=== PATIENT | male | born 1940 | race Caucasian/White ===

== ENCOUNTER 2018-11-27 09:56 | Emergency (ER) | payer OTHER ==
[~2018-11-27] VITALS: Ht 172.7 cm; Wt 77.1 kg
[~2018-11-27 09:56] MED LIST: METO25ER PO; NIFE60ER PO; OXYC5 PO
[2018-11-27 10:35] LABS: BASOPHILS PERCENT AUTO 1 % (0-2); EOSINOPHILS ABSOLUTE AUTO 0.03 K/mm3 (0.00-0.68); EOSINOPHILS PERCENT AUTO 0 % (0-6); Hematocrit 37.1 % (37.0-53.0); Hemoglobin 11.6 g/dL (13.5-17.5); IMMATURE GRAN ABSOLUTE AUTO 0.12 K/mm3 (0.00-0.10); IMMATURE GRAN PERCENT AUTO 1 % (0-1); LYMPHOCYTES ABSOLUTE AUTO 1.39 K/mm3 (0.84-5.20); LYMPHOCYTES PERCENT AUTO 11 % (21-46); MONOCYTES ABSOLUTE AUTO 1.71 K/mm3 (0.16-1.47); MONOCYTES PERCENT AUTO 13 % (4-13); Mean Corpuscular HGB 30.8 pg (26.0-34.0); Mean Corpuscular HGB Conc 31.3 g/dL (31.5-36.5); Mean Corpuscular Volume 98 fL (80-100); Mean Platelet Volume 9.9 fL (9.1-12.4); NEUTROPHILS PERCENT AUTO 74 % (41-73); Platelet Count 232 K/mm3 (150-400); RDW Standard Deviation 54.4 fL (35.1-46.3); Red Blood Cell Count 3.77 M/mm3 (4.30-5.90); White Blood Cell Count 12.75 K/mm3 (4.00-11.30)
[2018-11-27 10:40] LABS: Calcium, Ionized (POC) 1.02 mmol/L (1.10-1.46); Chloride (POC) 92 mmol/L (98-108); Creatinine (POC) 1.4 mg/dL (0.8-1.3); Glucose (ISTAT POC) 125 mg/dL (70-99); Hemoglobin (POC) 12.6 g/dL (13.5-17.5); Sodium (POC) 132 mmol/L (135-148); Total CO2 (POC) 30 mmol/L (21-32)
[2018-11-27 10:57] LABS: Albumin, Blood 2.5 g/dL (3.4-5.0); Albumin/Globulin Ratio 0.5 (0.8-1.8); Bilirubin, Total 0.4 mg/dL (0.1-1.0); Bun/Creatinine Ratio 18.7 (12.0-20.0); Calcium, Blood 8.5 mg/dL (8.5-10.1); Creatinine, Blood 1.34 mg/dL (0.60-1.20); Globulin, Blood 4.6 g/dL (2.2-4.0); Potassium, Blood 3.9 mmol/L (3.5-5.5); Total Protein, Blood 7.1 g/dL (6.4-8.2)
[2018-11-27] MEDS ORDERED: TAMS.4ER PO (11:27)
[2018-11-27] MEDS ORDERED: GABA100 PO (11:27)
== END 2018-11-27 15:12 | disposition short-term general hospital (02) ==
LOC: ER 09:56 → MRI 10:00 → EDSTATUS 10:00 → ER 15:12 → MRI 11-30 09:00
PROVIDERS: Emergency Medicine
DX: A41.9 Sepsis, unspecified organism (principal); J18.9 Pneumonia, unspecified organism; J96.01 Acute respiratory failure with hypoxia; J90 Pleural effusion, not elsewhere classified; C34.90 Malignant neoplasm of unspecified part of unspecified bronchus or lung; Z79.899 Other long term (current) drug therapy
CPT/HCPCS: 36415; 71045; 71260; 80047; 80053; 83605; 85014; 85025; 93005; 93010; 96361-59; 96365-59; 96367-59; 99285-25; J0456; J0696; J7030; J7050; Q9967

== ENCOUNTER 2019-01-25 11:40 | Day surgery (SDC) | payer OTHER ==
[~2019-01-25] VITALS: Ht 172.7 cm; Wt 65.2 kg
[~2019-01-25 11:40] MED LIST changes: +ACET325 PO; +BENZ100A PO; +GABA100 PO; +LISI20 PO; +METO10 PO; +NIFE30ER PO; +Reglan10 MG PO; +Senna Laxative8.6 MG PO; +Senna Plus Tab1 EACH PO; +TAMS.4ER PO; +Zofran8 MG PO
--- NOTE | 2019-01-25 12:19 | NUR ---
01/25/19 1219 Jigna Jacobson CALL LIGHT WITHIN REACH
--- NOTE | 2019-01-25 14:02 | NUR ---
01/25/19 1402 Lois Rodriguez PORTABLE CXR IN PROGRESS,FAMILY CALLED AND WILL BE HERE SOON
== END 2019-01-25 15:11 | disposition home or self-care (01) ==
LOC: ORSCSDS 11:40
PROVIDERS: Surgery
PROC: B5131ZA Fluoroscopy of Right Jugular Veins using Low Osmolar Contrast, Guidance (ICD-10-PCS; principal; 2019-01-25 13:00)
PROC: 05HM33Z Insertion of Infusion Device into Right Internal Jugular Vein, Percutaneous Approach (ICD-10-PCS; principal; 2019-01-25 13:00)
DX: C34.32 Malignant neoplasm of lower lobe, left bronchus or lung (principal); I10 Essential (primary) hypertension; Z79.899 Other long term (current) drug therapy
CPT/HCPCS: 77001; C1788; J0690; J1642; J2001; J2250; J2704; J3010; J7120

== ENCOUNTER 2019-08-22 13:33 | Inpatient (IN) | payer OTHER ==
[~2019-08-22] VITALS: Ht 170.2 cm; Wt 64.4 kg
[2019-08-22 14:25] LABS: BASOPHILS ABSOLUTE AUTO 0.05 K/mm3 (0.00-0.23); BASOPHILS PERCENT AUTO 0 % (0-2); EOSINOPHILS PERCENT AUTO 0 % (0-6); Hematocrit 40.6 % (37.0-53.0); Hemoglobin 13.6 g/dL (13.5-17.5); IMMATURE GRAN ABSOLUTE AUTO 0.12 K/mm3 (0.00-0.10); IMMATURE GRAN PERCENT AUTO 1 % (0-1); LYMPHOCYTES ABSOLUTE AUTO 0.99 K/mm3 (0.84-5.20); LYMPHOCYTES PERCENT AUTO 7 % (21-46); MONOCYTES ABSOLUTE AUTO 1.11 K/mm3 (0.16-1.47); MONOCYTES PERCENT AUTO 8 % (4-13); Mean Corpuscular HGB 33.1 pg (26.0-34.0); Mean Corpuscular HGB Conc 33.5 g/dL (31.5-36.5); Mean Corpuscular Volume 99 fL (80-100); Mean Platelet Volume 10.5 fL (9.1-12.4); NEUTROPHILS ABSOLUTE AUTO 11.09 K/mm3 (1.96-9.15); NEUTROPHILS PERCENT AUTO 83 % (41-73); Platelet Count 148 K/mm3 (150-400); RDW Standard Deviation 55.2 fL (35.1-46.3); Red Blood Cell Count 4.11 M/mm3 (4.30-5.90); White Blood Cell Count 13.36 K/mm3 (4.00-11.30)
[2019-08-22 14:33] LABS: Alanine Aminotransfer (ALT/SGP 59 U/L (12-78); Albumin, Blood 2.8 g/dL (3.4-5.0); Albumin/Globulin Ratio 0.6 (0.8-1.8); Alk Phos 507 U/L (50-136); Anion Gap 7 mmol/L (6-16); Aspartate Aminotrans (AST/SGOT 40 U/L (12-37); Bilirubin, Total 0.7 mg/dL (0.1-1.0); Blood Urea Nitrogen 23 mg/dL (8-24); Bun/Creatinine Ratio 14.9 (12.0-20.0); CO2, Blood 32 mmol/L (21-32); Calcium, Blood 8.8 mg/dL (8.5-10.1); Chloride, Blood 98 mmol/L (98-108); Creatinine, Blood 1.54 mg/dL (0.60-1.20); Globulin, Blood 4.5 g/dL (2.2-4.0); Glomerular Filtration Rate 47 (60-); Glucose, Blood 165 mg/dL (70-99); Potassium, Blood 3.2 mmol/L (3.5-5.5); Sodium, Blood 137 mmol/L (136-145); Total Protein, Blood 7.3 g/dL (6.4-8.2); Troponin I <0.015 ng/mL (0.000-0.040)
[2019-08-22] MEDS ORDERED: Percocet 5-3251 EACH PO (17:30)
--- NOTE | 2019-08-22 18:46 | NUR ---
SHIFT SUMMARY PATIENT ARRIVED BY HOSPITAL BED. ORIENTED TO ROOM. ASSESSEMNTS COMPLETED. FAMILY AT BEDSIDE. PATIENT IN NO ACUTE DISTRESS. CT COMPLETED AWAITING RESULTS. SCD'D PLACED ON PATIENT. PATIENT IS A/O AND ABLE TO MAKE NEEDS KNOWN.
[2019-08-23 04:57] LABS: BASOPHILS ABSOLUTE AUTO 0.04 K/mm3 (0.00-0.23); BASOPHILS PERCENT AUTO 1 % (0-2); EOSINOPHILS ABSOLUTE AUTO 0.06 K/mm3 (0.00-0.68); EOSINOPHILS PERCENT AUTO 1 % (0-6); Hematocrit 35.3 % (37.0-53.0); Hemoglobin 11.8 g/dL (13.5-17.5); IMMATURE GRAN ABSOLUTE AUTO 0.04 K/mm3 (0.00-0.10); IMMATURE GRAN PERCENT AUTO 1 % (0-1); LYMPHOCYTES ABSOLUTE AUTO 1.13 K/mm3 (0.84-5.20); LYMPHOCYTES PERCENT AUTO 13 % (21-46); MONOCYTES PERCENT AUTO 12 % (4-13); Mean Corpuscular HGB 32.9 pg (26.0-34.0); Mean Corpuscular HGB Conc 33.4 g/dL (31.5-36.5); Mean Corpuscular Volume 98 fL (80-100); Mean Platelet Volume 10.6 fL (9.1-12.4); NEUTROPHILS ABSOLUTE AUTO 6.33 K/mm3 (1.96-9.15); NEUTROPHILS PERCENT AUTO 74 % (41-73); Platelet Count 105 K/mm3 (150-400); RDW Coefficient Variation 15.1 % (11.7-14.2); RDW Standard Deviation 55.1 fL (35.1-46.3); Red Blood Cell Count 3.59 M/mm3 (4.30-5.90)
[2019-08-23 05:35] LABS: Bun/Creatinine Ratio 14.4 (12.0-20.0); Calcium, Blood 8.6 mg/dL (8.5-10.1); Creatinine, Blood 1.53 mg/dL (0.60-1.20); Potassium, Blood 3.2 mmol/L (3.5-5.5)
--- NOTE | 2019-08-23 07:14 | NUR ---
08/23/19 0600 VITALS STABLE. MEDICATED TWICE FOR "LUNG" AND SHOULDER DISCOMFORT. UP IN ROOM. PT DEPRESSED THIS SHIFT ABOUT POOR PROGNOSIS GIVEN BY MD LAST NIGHT REGARDING CANCER. ENCOURAGED VERBALIZATION OF FEELINGS/FEARS.
--- NOTE | 2019-08-23 14:19 | NUR ---
Patient is lying in bed and alert. Patient tells me about his recent lung cancer diagnosis, about his family and about his thoughts on spirituality. Patient shares about his 8 year old great grandson that he is raising and how devastating his will be on him. Patient also explains his many views about what is messed up in this country and his ideas on how to fix it. Patient is clearly struggling to process his prognosis. I listen empathically, normalize patient's experience, explore sources of meaning, provide spiritual guidance and a calming presence. I will continue to remain available to patient and family.
[2019-08-23] MEDS ORDERED: LEVO750 PO (17:39)
[2019-08-23] MEDS ORDERED: PRED20 PO (17:39)
== END 2019-08-23 19:06 | disposition home or self-care (01) | DRG 193 ==
LOC: ER 13:33 → MEDS 15:34
PROVIDERS: Physician Assistant; ADMIT Internal Medicine
DX: J18.9 Pneumonia, unspecified organism (principal); J96.01 Acute respiratory failure with hypoxia; J98.11 Atelectasis; C34.92 Malignant neoplasm of unspecified part of left bronchus or lung; Z87.891 Personal history of nicotine dependence; E87.6 Hypokalemia; I10 Essential (primary) hypertension; Z90.2 Acquired absence of lung [part of]; Z99.81 Dependence on supplemental oxygen
CPT/HCPCS: 36415; 71046; 71260; 80048; 80053; 84145; 84484; 85025; 93005; 93010; 96374; 99285-25; J0696; Q9967

== ENCOUNTER 2020-12-23 11:31 | Emergency (ER) | payer OTHER ==
[~2020-12-23] VITALS: Ht 170.2 cm; Wt 59.0 kg
[~2020-12-23 11:31] MED LIST changes: +LEVO750 PO; +PRED20 PO; +Percocet 5-3251 EACH PO
[2020-12-23 13:24] LABS: BASOPHILS ABSOLUTE AUTO 0.02 K/mm3 (0.00-0.23); BASOPHILS PERCENT AUTO 0 % (0-2); EOSINOPHILS ABSOLUTE AUTO 0.13 K/mm3 (0.00-0.68); EOSINOPHILS PERCENT AUTO 2 % (0-6); Hematocrit 25.8 % (37.0-53.0); Hemoglobin 8.6 g/dL (13.5-17.5); IMMATURE GRAN ABSOLUTE AUTO 0.03 K/mm3 (0.00-0.10); IMMATURE GRAN PERCENT AUTO 0 % (0-1); LYMPHOCYTES ABSOLUTE AUTO 0.55 K/mm3 (0.84-5.20); LYMPHOCYTES PERCENT AUTO 8 % (21-46); MONOCYTES ABSOLUTE AUTO 0.79 K/mm3 (0.16-1.47); MONOCYTES PERCENT AUTO 11 % (4-13); Mean Corpuscular HGB 35.1 pg (26.0-34.0); Mean Corpuscular HGB Conc 33.3 g/dL (31.5-36.5); Mean Corpuscular Volume 105 fL (80-100); NEUTROPHILS ABSOLUTE AUTO 5.48 K/mm3 (1.96-9.15); NEUTROPHILS PERCENT AUTO 78 % (41-73); Platelet Count 63 K/mm3 (150-400); RDW Coefficient Variation 14.9 % (11.7-14.2); RDW Standard Deviation 58.3 fL (35.1-46.3); Red Blood Cell Count 2.45 M/mm3 (4.30-5.90)
[2020-12-23 13:43] LABS: Albumin, Blood 2.1 g/dL (3.4-5.0); Albumin/Globulin Ratio 0.6 (0.8-1.8); Bilirubin, Total 0.8 mg/dL (0.1-1.0); Bun/Creatinine Ratio 26.7 (12.0-20.0); Calcium, Blood 8.3 mg/dL (8.5-10.1); Creatinine, Blood 1.61 mg/dL (0.60-1.20); Globulin, Blood 3.8 g/dL (2.2-4.0); Potassium, Blood 3.8 mmol/L (3.5-5.5); Total Protein, Blood 5.9 g/dL (6.4-8.2)
[2020-12-23 14:37] LABS: Source, Urine Clean Catch
[2020-12-23 14:47] LABS: Bilirubin, Urine Neg (Neg); Blood, Urine 1+ (Neg); Glucose Qualitative, Urine Neg (Neg); Ketones, Urine Neg (Neg); Leukocyte Esterase, Urine 2+ (Neg); Nitrite, Urine Neg (Neg); Protein, Urine 3+ (Neg); Specific Gravity, Urine 1.015 (1.003-1.022); Urobilinogen, Urine 1+ (Normal)
[2020-12-23 15:16] LABS: Appearance, Urine Hazy (Clear); Color, Urine Yellow (P-Yellow)
[2020-12-23 15:19] LABS: Bacteria Many /hpf; Squamous Epithelial Cells Mod /hpf (Few)
[2020-12-23] MEDS ORDERED: ONDA4ODT SL (16:04)
[2020-12-23] MEDS ORDERED: Percocet 5-3251 EACH PO (16:04)
[2020-12-23] MEDS ORDERED: Prednisone10 MG PO (16:24)
[2020-12-23] MEDS ORDERED: Children's Clari5 MG PO (16:43)
== END 2020-12-23 16:50 | disposition home or self-care (01) ==
LOC: ER 11:31
PROVIDERS: Emergency Medicine
DX: R18.8 Other ascites (principal); C34.90 Malignant neoplasm of unspecified part of unspecified bronchus or lung; Z87.891 Personal history of nicotine dependence
CPT/HCPCS: 74177; 80053; 81001; 82140; 83690; 85025; 87086; 93005; 93010; 96374-59; 99284-25; J2405; J7030; Q9967

== ENCOUNTER 2020-12-27 20:07 | Inpatient (IN) | payer OTHER ==
[~2020-12-27] VITALS: Ht 172.7 cm; Wt 66.3 kg
[~2020-12-27 20:07] MED LIST changes: +Children's Clari5 MG PO; +ONDA4ODT SL; +Prednisone10 MG PO
[2020-12-27 20:47] LABS: BASOPHILS ABSOLUTE AUTO 0.03 K/mm3 (0.00-0.23); BASOPHILS PERCENT AUTO 0 % (0-2); EOSINOPHILS ABSOLUTE AUTO 0.03 K/mm3 (0.00-0.68); EOSINOPHILS PERCENT AUTO 0 % (0-6); Hematocrit 22.2 % (37.0-53.0); Hemoglobin 7.3 g/dL (13.5-17.5); IMMATURE GRAN ABSOLUTE AUTO 0.05 K/mm3 (0.00-0.10); IMMATURE GRAN PERCENT AUTO 1 % (0-1); LYMPHOCYTES ABSOLUTE AUTO 1.61 K/mm3 (0.84-5.20); LYMPHOCYTES PERCENT AUTO 18 % (21-46); MONOCYTES ABSOLUTE AUTO 0.91 K/mm3 (0.16-1.47); MONOCYTES PERCENT AUTO 10 % (4-13); Mean Corpuscular HGB 35.3 pg (26.0-34.0); Mean Corpuscular HGB Conc 32.9 g/dL (31.5-36.5); Mean Corpuscular Volume 107 fL (80-100); Mean Platelet Volume 11.5 fL (9.1-12.4); NEUTROPHILS ABSOLUTE AUTO 6.35 K/mm3 (1.96-9.15); NEUTROPHILS PERCENT AUTO 71 % (41-73); Platelet Count 107 K/mm3 (150-400); RDW Standard Deviation 59.3 fL (35.1-46.3); Red Blood Cell Count 2.07 M/mm3 (4.30-5.90); White Blood Cell Count 8.98 K/mm3 (4.00-11.30)
[2020-12-27 21:19] LABS: Albumin/Globulin Ratio 0.6 (0.8-1.8); Bilirubin, Total 1.1 mg/dL (0.1-1.0); Bun/Creatinine Ratio 42.2 (12.0-20.0); Calcium, Blood 7.9 mg/dL (8.5-10.1); Creatinine, Blood 1.66 mg/dL (0.60-1.20); Globulin, Blood 3.6 g/dL (2.2-4.0); Potassium, Blood 4.2 mmol/L (3.5-5.5); Total Protein, Blood 5.6 g/dL (6.4-8.2)
[2020-12-27 21:24] LABS: Troponin I 0.553 ng/mL (0.000-0.040)
[2020-12-27] MEDS ORDERED: OXYC5 PO (22:27)
[2020-12-27 22:53] LABS: International Normalized Ratio 1.16; Prothrombin Time Results 12.3 Sec (9.7-11.5)
--- NOTE | 2020-12-28 05:58 | NUR ---
GRIPPER ATTACHER SUMMARY PT A/O X3-4 WITH FORGETFULNESS. PT DENIES N/V. NO BM OVERNIGHT. COMPLAINS OF ABD PAIN. MEDICATED FOR ABD PAIN X2 OVERNIGHT. ABDOMEN IS DISTENTED. CONSULT WITH DR. SOLORIO THIS AM. TOLERATED CLEAR LIQUIDS WELL. PT GIVEN 1 UNIT OF PRBC, TOLERATED WELL. LUNG SOUDS CLEAR THROUGHOUT. DENIES SOB. CONTINUES TO BE 1L O2 SATTING IN THE MID 90'S. PT STATES HE HAS O2 AT HOME AND SOMETIMES WEARS IT. VSS. CALL LIGHT WITHIN REACH, BED ALARM ON.
[2020-12-28 06:24] LABS: BASOPHILS ABSOLUTE AUTO 0.02 K/mm3 (0.00-0.23); BASOPHILS PERCENT AUTO 0 % (0-2); EOSINOPHILS ABSOLUTE AUTO 0.01 K/mm3 (0.00-0.68); EOSINOPHILS PERCENT AUTO 0 % (0-6); Hematocrit 20.1 % (37.0-53.0); Hemoglobin 6.7 g/dL (13.5-17.5); IMMATURE GRAN ABSOLUTE AUTO 0.03 K/mm3 (0.00-0.10); IMMATURE GRAN PERCENT AUTO 0 % (0-1); LYMPHOCYTES ABSOLUTE AUTO 1.44 K/mm3 (0.84-5.20); LYMPHOCYTES PERCENT AUTO 20 % (21-46); MONOCYTES ABSOLUTE AUTO 0.85 K/mm3 (0.16-1.47); MONOCYTES PERCENT AUTO 12 % (4-13); Mean Corpuscular HGB 34.5 pg (26.0-34.0); Mean Corpuscular HGB Conc 33.3 g/dL (31.5-36.5); Mean Corpuscular Volume 104 fL (80-100); Mean Platelet Volume 11.8 fL (9.1-12.4); NEUTROPHILS ABSOLUTE AUTO 4.71 K/mm3 (1.96-9.15); NEUTROPHILS PERCENT AUTO 67 % (41-73); Platelet Count 71 K/mm3 (150-400); RDW Coefficient Variation 17.6 % (11.7-14.2); RDW Standard Deviation 66.1 fL (35.1-46.3); Red Blood Cell Count 1.94 M/mm3 (4.30-5.90); White Blood Cell Count 7.06 K/mm3 (4.00-11.30)
[2020-12-28 06:59] LABS: Albumin, Blood 2.3 g/dL (3.4-5.0); Albumin/Globulin Ratio 0.7 (0.8-1.8); Bilirubin, Total 1.6 mg/dL (0.1-1.0); Bun/Creatinine Ratio 45.9 (12.0-20.0); Calcium, Blood 7.7 mg/dL (8.5-10.1); Creatinine, Blood 1.7 mg/dL (0.60-1.20); Globulin, Blood 3.2 g/dL (2.2-4.0); Potassium, Blood 4.4 mmol/L (3.5-5.5); Total Protein, Blood 5.5 g/dL (6.4-8.2)
[2020-12-28 07:10] LABS: Troponin I 0.516 ng/mL (0.000-0.040)
--- NOTE | 2020-12-28 07:29 | NUR ---
CRITICAL HIGH VALUE NOTIFIED OF CRITICAL HIGH TROPONIN VALUE OF 0.51 THIS AM. CALL PLACED TO DR. BENNETT. NO NEW ORDERS AT THIS TIME.
[2020-12-28 13:06] LABS: Hematocrit 22.5 % (37.0-53.0); Hemoglobin 7.5 g/dL (13.5-17.5)
[2020-12-28 14:06] LABS: Troponin I 0.574 ng/mL (0.000-0.040)
--- NOTE | 2020-12-28 16:04 | NUR ---
ECHOCARDIOGRAM COMPLETED
--- NOTE | 2020-12-28 16:28 | NUR ---
12/28/20 1628 Oneyda Pretty History, Chart, Medications and Allergies reviewed before start of procedure. 3-LEAD EKG REVIEWED WITH PHYSICIAN PRIOR TO START OF PROCEDURE. MONITOR INTACT WITH CONTINUOUS PULSE OXIMETRY AND INTERMITTENT BP. CASE W/MAC. See Anesthesia record.
[2020-12-28 16:29] LABS: Influenza A, PCR NEGATIVE (NEGATIVE); Influenza B, PCR NEGATIVE (NEGATIVE); Resp Syncytial Virus, PCR NEGATIVE (NEGATIVE); SARS-Cov-2 (COVID-19) PCR, MMC NEGATIVE (NEGATIVE)
--- NOTE | 2020-12-28 18:14 | NUR ---
SHIFT SUMMARY PT ADMITTED FOR VOMITTING OF COFFEE GROUND EMESIS AND CONSTIPATION. HX OF LUNG CANCER AND CIRRHOSIS. HE HAD A FEW BM'S THIS SHIFT, BOTH BLACK IN COLOR. CRITICAL HIGH TROPONINS AT AROUND 0.5 THIS SHIFT AND THE PT PERIODICALLLY C/O CP. TREATED PER EMR FOR CP. RECEIVED A UNIT OF BLOOD THIS SHIFT AND TOLERATED IT WELL. HE ALSO UNDERWENT AN EGD THIS SHIFT AND ESOPHAGEAL ULCERS WERE FOUND. HE IS TO HAVE A PARACENTESIS DONE TOMORROW MORNING. VSS; RESTING COMFORTABLY IN BED WITH CALL LIGHT IN REACH.
[2020-12-28 20:18] LABS: Hematocrit 21.5 % (37.0-53.0); Hemoglobin 7.2 g/dL (13.5-17.5)
[2020-12-29 01:09] LABS: Hematocrit 20.8 % (37.0-53.0); Hemoglobin 6.9 g/dL (13.5-17.5)
--- NOTE | 2020-12-29 01:16 | NUR ---
H&H 2009 HOSPITALIST LAYNE NOTIFIED OF PT'S H&H TRENDING DOWN. STATES TO KEEP WATCH OF LEVELS. NO NEW ORDERS. PT HAS BEEN TIRED AND ASLEEP.
[2020-12-29 01:23] LABS: Percent Saturation 70.5 % (20.0-50.0)
--- NOTE | 2020-12-29 03:16 | NUR ---
DR. SEVILLA NOTIFIED OF H&H TRENDING DOWN. 1 UNIT OF PACK RED BLOOD CELL ORDERD AND CURRENTLY INFUSING. LUNG SOUNDS CLEAR. CONTIUES TO BE ON 2L O2 VIA NC SATTING IN THE MID 90'S.
--- NOTE | 2020-12-29 06:39 | NUR ---
CANDY DEPARTMENT MANAGER SUMMARY PT A/O X3-4 WITH FORGETFULNESS. DENIES CHEST PAIN, NAUSEA, SOB. PT HAS BEEN ON 2L OVERNIGHT SATTING IN THE HIGH 90'S. PT SLEPT GREAT TONIGHT. TOLERATED FULL LIQUIDS WELL. PT RECIEVED 1 UNIT OF BLOOD THIS EARLY AM. MULTIPLE VIALS OF BLOOD WERE DRAWN PER MD ORDER. LUNG SOUNDS CLEAR, PT DENIED SOB. PT HAD 2 VERY SMALL FORMED BLACK BM'S. BED ALARM ON, CALL LIGHT WITHIN REACH.
[2020-12-29 06:43] LABS: BASOPHILS ABSOLUTE AUTO 0.04 K/mm3 (0.00-0.23); BASOPHILS PERCENT AUTO 1 % (0-2); EOSINOPHILS ABSOLUTE AUTO 0.17 K/mm3 (0.00-0.68); EOSINOPHILS PERCENT AUTO 3 % (0-6); Hematocrit 24.8 % (37.0-53.0); Hemoglobin 8.4 g/dL (13.5-17.5); IMMATURE GRAN ABSOLUTE AUTO 0.03 K/mm3 (0.00-0.10); IMMATURE GRAN PERCENT AUTO 1 % (0-1); LYMPHOCYTES ABSOLUTE AUTO 0.82 K/mm3 (0.84-5.20); LYMPHOCYTES PERCENT AUTO 15 % (21-46); MONOCYTES ABSOLUTE AUTO 0.64 K/mm3 (0.16-1.47); MONOCYTES PERCENT AUTO 12 % (4-13); Mean Corpuscular HGB 32.9 pg (26.0-34.0); Mean Corpuscular HGB Conc 33.9 g/dL (31.5-36.5); Mean Platelet Volume 11.2 fL (9.1-12.4); NEUTROPHILS ABSOLUTE AUTO 3.74 K/mm3 (1.96-9.15); NEUTROPHILS PERCENT AUTO 69 % (41-73); Platelet Count 62 K/mm3 (150-400); RDW Coefficient Variation 20.5 % (11.7-14.2); RDW Standard Deviation 71.1 fL (35.1-46.3); Red Blood Cell Count 2.55 M/mm3 (4.30-5.90); White Blood Cell Count 5.44 K/mm3 (4.00-11.30)
[2020-12-29 06:53] LABS: Mean Corpuscular Volume 97 fL (80-100)
[2020-12-29 07:07] LABS: Albumin/Globulin Ratio 0.7 (0.8-1.8); Bilirubin, Total 1.2 mg/dL (0.1-1.0); Bun/Creatinine Ratio 39.2 (12.0-20.0); Calcium, Blood 7.8 mg/dL (8.5-10.1); Creatinine, Blood 1.81 mg/dL (0.60-1.20); Globulin, Blood 2.9 g/dL (2.2-4.0); Potassium, Blood 4.3 mmol/L (3.5-5.5); Total Protein, Blood 4.9 g/dL (6.4-8.2)
[2020-12-29 13:55] LABS: Hematocrit 25.9 % (37.0-53.0); Hemoglobin 8.8 g/dL (13.5-17.5)
--- NOTE | 2020-12-29 18:07 | NUR ---
SHIFT SUMMARY. A&OX4, PLEASANT AND COOPERATIVE WITH CARE, SBA TO BSC, INDPENDENT WITH URINAL. PT HAD ONE MEDIUM FORMED BLACK STOOL TODAY, NO N/V. PT REPORTED PAIN TO UPPER CHEST ONCE THIS SHIFT, PAIN MANAGED WELL WITH CURRENT ORDERS. PARACENTESIS IS PLANNED FOR TOMORROW PER RADIOLOGY. DAUGHTER IN TO VISIT THIS AFTERNOON. H&H HOLDING STABLE AT THIS TIME. NO OTHER CHANGES OR CONCERNS.
[2020-12-29 18:28] LABS: Hematocrit 26.6 % (37.0-53.0)
[2020-12-30 05:32] LABS: BASOPHILS ABSOLUTE AUTO 0.03 K/mm3 (0.00-0.23); BASOPHILS PERCENT AUTO 1 % (0-2); EOSINOPHILS ABSOLUTE AUTO 0.23 K/mm3 (0.00-0.68); EOSINOPHILS PERCENT AUTO 4 % (0-6); Hematocrit 25.5 % (37.0-53.0); Hemoglobin 8.5 g/dL (13.5-17.5); IMMATURE GRAN ABSOLUTE AUTO 0.02 K/mm3 (0.00-0.10); IMMATURE GRAN PERCENT AUTO 0 % (0-1); LYMPHOCYTES ABSOLUTE AUTO 0.83 K/mm3 (0.84-5.20); LYMPHOCYTES PERCENT AUTO 14 % (21-46); MONOCYTES ABSOLUTE AUTO 0.56 K/mm3 (0.16-1.47); MONOCYTES PERCENT AUTO 9 % (4-13); Mean Corpuscular HGB 33.2 pg (26.0-34.0); Mean Corpuscular HGB Conc 33.3 g/dL (31.5-36.5); Mean Corpuscular Volume 100 fL (80-100); Mean Platelet Volume 11.9 fL (9.1-12.4); NEUTROPHILS ABSOLUTE AUTO 4.27 K/mm3 (1.96-9.15); NEUTROPHILS PERCENT AUTO 72 % (41-73); Platelet Count 59 K/mm3 (150-400); RDW Coefficient Variation 19.7 % (11.7-14.2); RDW Standard Deviation 70.4 fL (35.1-46.3); Red Blood Cell Count 2.56 M/mm3 (4.30-5.90); White Blood Cell Count 5.94 K/mm3 (4.00-11.30)
--- NOTE | 2020-12-30 05:32 | NUR ---
EMPLOYMENT SERVICE SPECIALIST SUMMARY PT A/O X3 WITH FORGETFULNESS. DENIES CHEST PAIN, ABD PAIN, NAUSEA, SOB. SLETP WELL TONIGHT. SR IN THE 80'S PER SENIOR SALES COMPENSATION ANALYST. TOLERATED FLUIDS WELL. NO BM'S OVERNIGHT. UP TO BSC WITH 1 ASSIST. BED ALARM ON, CALL LIGHT WITHIN REACH. PT COMPLAINED ABOUT ITCHYNESS "ALL OVER" BODY. NO RASHES PRESENT, PT HE GETS ITCHY ALL OVER AT TIMES. PT AGREED TO TRYING BENADRYL WHICH HE HAS HAD BEFORE. ATTEMPTED TO CALL DR. SANCHEZ AT [phone] WITH NO SUCCESS. WILL WAIT FOR CALL BACK.
[2020-12-30 05:48] LABS: Bun/Creatinine Ratio 36.2 (12.0-20.0); Calcium, Blood 7.5 mg/dL (8.5-10.1); Creatinine, Blood 1.74 mg/dL (0.60-1.20); Potassium, Blood 3.9 mmol/L (3.5-5.5)
[2020-12-30 07:10] LABS: COMPLEMENT C3, SERUM 81 mg/dL (82-167); COMPLEMENT C4, SERUM 19 mg/dL (12-38)
[2020-12-30 07:10] LABS: HBSAG SCREEN Negative (Negative); HCV ANTIBODY <0.1 (0.0-0.9); HEP B CORE AB, TOT Negative (Negative)
[2020-12-30 11:03] LABS: Automated BF WBC Count 0.337 K/mm3 (0-999); Body Fluid WBC Count 337 /mm3 (0-999)
[2020-12-30 11:10] LABS: Albumin, Body Fluid 0.9 g/dL
[2020-12-30 11:20] LABS: Protein, Body Fluid 1.9 g/dL
[2020-12-30 11:34] LABS: Color, Body Fluid Yellow (None-Yellow); RBC Count, Body Fluid 450 /mm3 (0-0)
[2020-12-30 11:35] LABS: Appearance, Body Fluid Hazy (Clear)
[2020-12-30 12:04] LABS: Total Cell Count, Body Fluid 100
--- NOTE | 2020-12-30 18:27 | NUR ---
SHIFT SUMMARY PT HAD PARACENTESIS COMPLETED TODAY. ALBUMIN GIVEN AFTERWARDS ORDERED. PT C/O PAIN IN HIS CHEST THIS AFTERNOON. PT REQUESTING HIS HOME DOSE OF OXYCODONE RATHER THAN FENTANYL. DR. BENNETT NOTIFIED & ORDER CHANGED. PT WORKED WITH PHYSICAL THERAPY TODAY. PT VISITED BY FAMILY & CURRENTLY UP IN BED WORKING ON DINNER. MEDIPORT RUNNING TKO T/O DAY WITH NS. PT C/O NAUSEA THIS AM & HAS SINCE RESOLVED. NO OTHER ACUTE CHANGES IN ASSESSMENT AT THIS TIME. VS REVIEWED.
--- NOTE | 2020-12-31 04:01 | NUR ---
SHIFT SUMMARY: VSS. TEMP 99.1. 02 97% ON RA. ABD LARGE, ROUND, SOFT, NON-TENDER W/PALPATION. MEDX1 FOR UPPER ABD PAIN W/ GOOD RESULTS. BT HYPOACTIVE. PT REPORTS LOOSE STOOLS YESTERDAY AM. DENIES NAUSEA. AAOX4. CALLS APPROPRIATELY, MAKES NEEDS KNOWN. NO ACUTE EVENTS OVERNIGHT. WCTM.
[2020-12-31 05:36] LABS: BASOPHILS ABSOLUTE AUTO 0.03 K/mm3 (0.00-0.23); BASOPHILS PERCENT AUTO 1 % (0-2); EOSINOPHILS ABSOLUTE AUTO 0.23 K/mm3 (0.00-0.68); EOSINOPHILS PERCENT AUTO 5 % (0-6); Hematocrit 24.5 % (37.0-53.0); Hemoglobin 8.1 g/dL (13.5-17.5); IMMATURE GRAN ABSOLUTE AUTO 0.02 K/mm3 (0.00-0.10); IMMATURE GRAN PERCENT AUTO 0 % (0-1); LYMPHOCYTES PERCENT AUTO 16 % (21-46); MONOCYTES ABSOLUTE AUTO 0.51 K/mm3 (0.16-1.47); MONOCYTES PERCENT AUTO 10 % (4-13); Mean Corpuscular HGB 33.1 pg (26.0-34.0); Mean Corpuscular HGB Conc 33.1 g/dL (31.5-36.5); Mean Corpuscular Volume 100 fL (80-100); Mean Platelet Volume 11.2 fL (9.1-12.4); NEUTROPHILS PERCENT AUTO 69 % (41-73); Platelet Count 51 K/mm3 (150-400); RDW Coefficient Variation 18.6 % (11.7-14.2); RDW Standard Deviation 66.8 fL (35.1-46.3); Red Blood Cell Count 2.45 M/mm3 (4.30-5.90); White Blood Cell Count 5.09 K/mm3 (4.00-11.30)
[2020-12-31 05:54] LABS: Albumin, Blood 2.1 g/dL (3.4-5.0); Anion Gap 6 mmol/L (6-16); Blood Urea Nitrogen 48 mg/dL (8-24); CO2, Blood 24 mmol/L (21-32); Calcium, Blood 7.3 mg/dL (8.5-10.1); Chloride, Blood 113 mmol/L (98-108); Glomerular Filtration Rate 48 (60-); Glucose, Blood 90 mg/dL (70-99); Magnesium, Blood 1.9 mg/dL (1.6-2.4); Phosphorus, Blood 2.7 mg/dL (2.5-4.9); Potassium, Blood 3.6 mmol/L (3.5-5.5); Sodium, Blood 143 mmol/L (136-145)
[2020-12-31] MEDS ORDERED: BENADRYL25 MG PO (11:11)
[2020-12-31] MEDS ORDERED: Benadryl Itch28.3 G1 TOP (11:14)
[2020-12-31] MEDS ORDERED: DOCU100 PO (11:16)
[2020-12-31] MEDS ORDERED: METO25ER PO (11:17)
[2020-12-31] MEDS ORDERED: OMEP20ER PO (11:18)
[2020-12-31] MEDS ORDERED: SENN187 PO (11:19)
[2020-12-31 14:12] LABS: ANTI-DSDNA ANTIBODIES 3 IU/mL (0-9); RNP ANTIBODIES <0.2 AI (0.0-0.9); SJOGREN'S ANTI-SS-A <0.2 AI (0.0-0.9); SJOGREN'S ANTI-SS-B <0.2 AI (0.0-0.9); SMITH ANTIBODIES <0.2 AI (0.0-0.9)
--- NOTE | 2020-12-31 15:00 | NUR ---
PATIENT D/C'D TO HOME WITH DAUGHTER. HOME HEALTH TO FOLLOW UP FOR EVALUATION. RX MEDIATIONS FAXED TO [facility]. DC INSTRUCTIONS AND EDUCATION DISCUSSED WITH PATIENT AND DAUGHTER AND COPY PROVIDED. PATIENT DENIES ANY FURTHER QUESTIONS OR CONCERNS.
== END 2020-12-31 15:02 | disposition home health service (06) | DRG 381 ==
LOC: ER 20:07 → MEDS 20:08
PROVIDERS: Hospitalist; Internal Medicine; Internal Medicine Gastroenterology; Physician Assistant; ADMIT Internal Medicine
PROC: 30233N1 Transfusion of Nonautologous Red Blood Cells into Peripheral Vein, Percutaneous Approach (ICD-10-PCS; 2020-12-27)
PROC: 0DJ08ZZ Inspection of Upper Intestinal Tract, Via Natural or Artificial Opening Endoscopic (ICD-10-PCS; 2020-12-28)
PROC: 0W9G3ZZ Drainage of Peritoneal Cavity, Percutaneous Approach (ICD-10-PCS; principal; 2020-12-30)
DX: K22.11 Ulcer of esophagus with bleeding (principal); R18.8 Other ascites; C34.32 Malignant neoplasm of lower lobe, left bronchus or lung; N13.8 Other obstructive and reflux uropathy; R64 Cachexia; D62 Acute posthemorrhagic anemia; I24.8 Other forms of acute ischemic heart disease; I13.0 Hypertensive heart and chronic kidney disease with heart failure and stage 1 through stage 4 chronic kidney disease, or unspecified chronic kidney disease; I50.20 Unspecified systolic (congestive) heart failure; K44.9 Diaphragmatic hernia without obstruction or gangrene; K43.9 Ventral hernia without obstruction or gangrene; N40.1 Benign prostatic hyperplasia with lower urinary tract symptoms; K59.00 Constipation, unspecified; K74.60 Unspecified cirrhosis of liver; E86.0 Dehydration; N18.30 Chronic kidney disease, stage 3 unspecified; D69.6 Thrombocytopenia, unspecified; I25.10 Atherosclerotic heart disease of native coronary artery without angina pectoris; Z92.3 Personal history of irradiation; Z90.2 Acquired absence of lung [part of]; Z95.828 Presence of other vascular implants and grafts; Z98.890 Other specified postprocedural states; Z87.891 Personal history of nicotine dependence; Z68.21 Body mass index [BMI] 21.0-21.9, adult; Z79.52 Long term (current) use of systemic steroids; Z79.899 Other long term (current) drug therapy
CPT/HCPCS: 0241U; 36415; 36430; 49083; 71045; 74177; 80048; 80053; 80069; 82042; 82103; 82104; 82105; 82390; 82550; 82728; 83516; 83540; 83550; 83690; 83735; 83880; 84157; 84484; 85014; 85018; 85025; 85610; 86160; 86225; 86235; 86317; 86704; 86708; 86803; 86850; 86900; 86901; 86923; 87070; 87205; 87340; 89051; 93005; 93010; 93306; 94640; 94760; 96365-59; 96367; 96375; 96376; 97110; 97116; 97162; 99285-25; A9270; C9113; G0378; J0696; J1642; J2354; J2370; J2405; J2704; J3010; J7030; J7050; P9016; P9046; Q9967

== ENCOUNTER 2021-01-29 11:58 | Emergency (ER) | payer OTHER ==
[~2021-01-29] VITALS: Ht 170.2 cm; Wt 68.0 kg
[~2021-01-29 11:58] MED LIST changes: +BENADRYL25 MG PO; +Benadryl Itch28.3 G1 TOP; +DOCU100 PO; +OMEP20ER PO; +SENN187 PO
[2021-01-29 15:55] LABS: BASOPHILS ABSOLUTE AUTO 0.03 K/mm3 (0.00-0.23); BASOPHILS PERCENT AUTO 1 % (0-2); EOSINOPHILS ABSOLUTE AUTO 0.05 K/mm3 (0.00-0.68); EOSINOPHILS PERCENT AUTO 1 % (0-6); Hematocrit 29.9 % (37.0-53.0); Hemoglobin 9.8 g/dL (13.5-17.5); IMMATURE GRAN ABSOLUTE AUTO 0.02 K/mm3 (0.00-0.10); IMMATURE GRAN PERCENT AUTO 0 % (0-1); LYMPHOCYTES ABSOLUTE AUTO 1.23 K/mm3 (0.84-5.20); LYMPHOCYTES PERCENT AUTO 26 % (21-46); MONOCYTES PERCENT AUTO 9 % (4-13); Mean Corpuscular HGB Conc 32.8 g/dL (31.5-36.5); Mean Corpuscular Volume 104 fL (80-100); NEUTROPHILS ABSOLUTE AUTO 2.96 K/mm3 (1.96-9.15); NEUTROPHILS PERCENT AUTO 63 % (41-73); RDW Coefficient Variation 19.2 % (11.7-14.2); RDW Standard Deviation 73.1 fL (35.1-46.3); Red Blood Cell Count 2.88 M/mm3 (4.30-5.90); White Blood Cell Count 4.69 K/mm3 (4.00-11.30)
[2021-01-29 16:03] LABS: International Normalized Ratio 1.24; Prothrombin Time Results 13.2 Sec (9.7-11.5)
[2021-01-29 16:07] LABS: Mean Platelet Volume 12.2 fL (9.1-12.4); Platelet Count 33 K/mm3 (150-400)
[2021-01-29 16:40] LABS: Influenza A, PCR NEGATIVE (NEGATIVE); Influenza B, PCR NEGATIVE (NEGATIVE); Resp Syncytial Virus, PCR NEGATIVE (NEGATIVE); SARS-Cov-2 (COVID-19) PCR, MMC NEGATIVE (NEGATIVE)
== END 2021-01-29 15:58 | disposition home or self-care (01) ==
LOC: ER 11:58
PROVIDERS: Emergency Medicine
DX: R18.8 Other ascites (principal); Z79.899 Other long term (current) drug therapy; Z87.891 Personal history of nicotine dependence; Z20.822 Contact with and (suspected) exposure to COVID-19
CPT/HCPCS: 0241U; 36415; 85025; 85610; 85730; 99284

== ENCOUNTER 2021-01-30 13:02 | Day surgery (SDC) | payer OTHER ==
[2021-01-30 17:46] LABS: Mean Platelet Volume 10.5 fL (9.1-12.4); Platelet Count 91 K/mm3 (150-400)
== END 2021-01-30 22:55 | disposition home or self-care (01) ==
LOC: ATC 13:02
PROVIDERS: Internal Medicine Hematology & Oncology
DX: D69.59 Other secondary thrombocytopenia (principal); K74.60 Unspecified cirrhosis of liver; C34.32 Malignant neoplasm of lower lobe, left bronchus or lung; C78.7 Secondary malignant neoplasm of liver and intrahepatic bile duct; C77.1 Secondary and unspecified malignant neoplasm of intrathoracic lymph nodes; I10 Essential (primary) hypertension; K21.9 Gastro-esophageal reflux disease without esophagitis; Z87.891 Personal history of nicotine dependence; Z92.21 Personal history of antineoplastic chemotherapy; Z92.3 Personal history of irradiation; Z90.2 Acquired absence of lung [part of]
CPT/HCPCS: 36415; 36430; 85049; 86900; 86901; J1642; J7050; P9035

== ENCOUNTER 2021-01-31 10:03 | Day surgery (SDC) | payer OTHER | END 2021-01-31 23:00 | disposition home or self-care (01) | LOC: US 10:03 | DX: R18.8 Other ascites (principal) | CPT/HCPCS: 49083 ==

== ENCOUNTER 2021-03-14 09:48 | Day surgery (SDC) | payer OTHER | END 2021-03-14 13:12 | disposition home or self-care (01) | LOC: US 09:48 → ATC 09:48 → US 10:00 → EDSTATUS 10:00 → ATC 13:12 | DX: K74.60 Unspecified cirrhosis of liver (principal); R18.8 Other ascites; I10 Essential (primary) hypertension; Z87.891 Personal history of nicotine dependence | CPT/HCPCS: 49083; 96365; J1642; P9041; P9046 ==